=== PATIENT | female | born 1990 | race Caucasian/White ===

== ENCOUNTER 2018-11-25 16:12 | Inpatient (IN) | payer MEDICAID ==
[2018-11-25] MEDS ORDERED: OXYTOCIN 30 UNITS/LR 500 ML IV ×2 (18:30)
[2018-11-25] MEDS ORDERED: LIDOCAINE 1% (MPF) 30 ML INJ INJ (18:30)
[2018-11-25] MEDS ORDERED: METHYLERGONOVINE 0.2 MG INJ IM (18:30)
[2018-11-25] MEDS ORDERED: CARBOPROST 250 MCG INJ IM (18:30)
[2018-11-25] MEDS ORDERED: MISOPROSTOL 200 MCG TAB PR (18:30)
[2018-11-25] MEDS ORDERED: BUTORPHANOL 2 MG INJ IV (18:30)
[2018-11-25] MEDS: AMPICILLIN 2 GM/NS (PMX) 100 ML IV (19:36)
[2018-11-25] MEDS: LACTATED RINGER'S 1,000 ML IV (19:36)
[2018-11-25] MEDS: MISOPROSTOL 50 MCG CAPSULE PO (19:54)
[2018-11-25 21:29] LABS: ADD MAN DIFF? NO
[2018-11-25 21:33] LABS: BASOPHIL # 0.1 10^3/ul (0.0-0.1); BASOPHILS % 0.5 % (0.0-2.0); EOSINOPHILS # 0.1 10^3/ul (0.0-0.5); EOSINOPHILS % 1.4 % (0.0-7.0); HEMATOCRIT 32.4 % (37.0-47.0); HEMOGLOBIN 10.6 g/dl (12.0-16.0); LYMPHOCYTES # 1.8 10^3/ul (0.8-2.9); LYMPHOCYTES % 18.7 % (15.0-51.0); MEAN CORPUSCULAR HEMOGLOBIN 32.2 pg (29.0-33.0); MEAN CORPUSCULAR HGB CONC 32.7 g/dl (32.0-37.0); MEAN CORPUSCULAR VOLUME 98.5 fl (82.0-101.0); MEAN PLATELET VOLUME 10.4 fl (7.4-10.4); MONOCYTE # 0.6 10^3/ul (0.3-0.9); MONOCYTES % 6.1 % (0.0-11.0); NEUTROPHIL # 6.6 10^3/ul (1.6-7.5); NEUTROPHILS % 69.3 % (39.0-77.0); PLATELET COUNT 281 10^3/UL (140-415); RED BLOOD COUNT 3.29 10^6/ul (4.20-5.40); RED CELL DISTRIBUTION WIDTH 13.5 % (11.5-14.5)
[2018-11-25 21:33] LABS: WHITE BLOOD COUNT 9.5 10^3/ul (4.8-10.8)
[2018-11-25 21:51] LABS: PROTIME 13.3 Sec (11.9-14.9)
[2018-11-25 21:52] LABS: PARTIAL THROMBOPLASTIN TIME 30.9 Sec (23.0-35.0)
[2018-11-25 22:23] LABS: HEPATITIS B SURFACE ANTIGEN NEGATIVE (NEGATIVE)
[2018-11-25] MEDS: AMPICILLIN 1 GM/NS (PMX) 50 ML IV (23:54)
[2018-11-26] MEDS: LACTATED RINGER'S 1,000 ML IV
[2018-11-26] MEDS ORDERED: MINERAL OIL LIGHT 10 ML VIAL (00:10)
[2018-11-26] MEDS ORDERED: MINERAL OIL LIGHT 10 ML VIAL TOP (00:30)
[2018-11-26] MEDS ORDERED: FENTAnyl 2MCG/ML-ROPIV 0.2% 100 ML (00:43)
[2018-11-26] MEDS ORDERED: FENTAnyl 2MCG/ML-ROPIV 0.2% 100 ML BAG EPI (01:00)
[2018-11-26] MEDS ORDERED: NALOXONE (0.4 MG/ML) INJ IV (01:00)
[2018-11-26] MEDS ORDERED: ONDANSETRON 4 MG INJ IV ×2 (01:00→05:00)
[2018-11-26] MEDS: AMPICILLIN 1 GM/NS (PMX) 50 ML IV (03:52)
[2018-11-26] MEDS: OXYTOCIN 30 UNITS/LR 500 ML IV ×2 (04:51→08:02)
[2018-11-26] MEDS ORDERED: DIPHENHYDRAMINE 25 MG CAP PO (05:00)
[2018-11-26] MEDS ORDERED: CARBOPROST 250 MCG INJ IM (05:00)
[2018-11-26] MEDS ORDERED: METHYLERGONOVINE 0.2 MG INJ IM (05:00)
[2018-11-26] MEDS ORDERED: MISOPROSTOL 200 MCG TAB PR (05:00)
[2018-11-26] MEDS ORDERED: DIPHENHYDRAMINE 50 MG INJ IV (05:00)
[2018-11-26] MEDS ORDERED: ONDANSETRON 4 MG TAB PO (05:00)
[2018-11-26] MEDS ORDERED: ACETAMINOPHEN 325 MG TAB PO ×2 (05:00)
[2018-11-26] MEDS ORDERED: HYDROCODONE/APAP (5/325) TAB PO ×2 (05:00)
[2018-11-26] MEDS ORDERED: MAGNESIUM HYDROXIDE 30ML CUP PO (05:00)
[2018-11-26] MEDS ORDERED: DIBUCAINE 1% 30 GM OINT TOP (05:00)
[2018-11-26] MEDS: BENZOCAINE 20% 56 ML SPRAY TOP (06:30)
[2018-11-26] MEDS: IBUPROFEN 800 MG TAB PO ×4 (06:30→23:50)
[2018-11-26] MEDS: LANOLIN HPA 1 PKT TOP (06:30)
[2018-11-26] MEDS: LACTATED RINGER'S 1,000 ML IV* ×2 (07:00→12:55)
[2018-11-26] MEDS ORDERED: WITCH HAZEL/GLYCERIN PAD (07:54)
[2018-11-26 19:55] LABS: RAPID PLASMA REAGIN NONREACTIVE (NR)
[2018-11-26] MEDS: SENNA/DOCUSATE NA (8.6MG/50MG) TAB PO (21:34)
[2018-11-27] MEDS: IBUPROFEN 800 MG TAB PO ×3 (05:40→18:22)
[2018-11-27 06:58] LABS: ADD MAN DIFF? NO
[2018-11-27 07:05] LABS: BASOPHIL # 0.1 10^3/ul (0.0-0.1); BASOPHILS % 0.5 % (0.0-2.0); EOSINOPHILS # 0.2 10^3/ul (0.0-0.5); EOSINOPHILS % 1.5 % (0.0-7.0); HEMATOCRIT 32.2 % (37.0-47.0); HEMOGLOBIN 10.5 g/dl (12.0-16.0); LYMPHOCYTES # 2.8 10^3/ul (0.8-2.9); LYMPHOCYTES % 23.1 % (15.0-51.0); MEAN CORPUSCULAR HEMOGLOBIN 32.5 pg (29.0-33.0); MEAN CORPUSCULAR HGB CONC 32.6 g/dl (32.0-37.0); MEAN CORPUSCULAR VOLUME 99.7 fl (82.0-101.0); MEAN PLATELET VOLUME 10.1 fl (7.4-10.4); MONOCYTE # 0.8 10^3/ul (0.3-0.9); NEUTROPHIL # 7.8 10^3/ul (1.6-7.5); PLATELET COUNT 251 10^3/UL (140-415); RED BLOOD COUNT 3.23 10^6/ul (4.20-5.40); RED CELL DISTRIBUTION WIDTH 13.2 % (11.5-14.5)
[2018-11-27 07:05] LABS: WHITE BLOOD COUNT 11.9 10^3/ul (4.8-10.8)
[2018-11-27] MEDS: LANOLIN HPA 1 PKT TOP (18:22)
[2018-11-28] MEDS: SENNA/DOCUSATE NA (8.6MG/50MG) TAB PO (00:01)
[2018-11-28] MEDS: IBUPROFEN 800 MG TAB PO ×3 (00:01→12:03)
[2018-11-28] MEDS: VARICELLA VACCINE LIVE/PF 1,350 UNIT/0.5 ML ML SC* (09:00)
[2018-11-28] MEDS: MEASLES,MUMPS,RUBELLA VACCINE INJ SC* (09:00)
[2018-11-28] MEDS: DIPHTH/TET/ACEL PERTUSS (ADULT) 0.5 ML VIAL IM* (10:18)
== END 2018-11-28 12:35 | disposition home or self-care (01) | DRG 807 ==
LOC: OBT 16:12 → PP1 11-26 06:06 → L-D 16:12 → OBT 17:15 → L-D 17:15
PROVIDERS: Obstetrics & Gynecology
PROC: 10E0XZZ Delivery of Products of Conception, External Approach (ICD-10-PCS; principal; 2018-11-26)
PROC: 0HQ9XZZ Repair Perineum Skin, External Approach (ICD-10-PCS; 2018-11-26)
DX: O70.0 First degree perineal laceration during delivery (principal); Z37.0 Single live birth; Z3A.38 38 weeks gestation of pregnancy
CPT/HCPCS: 62319; 85025; 85610; 85730; 86592; 86850; 86900; 86901; 87340; 90715